=== PATIENT | female | born 1955 | race Caucasian/White ===

== ENCOUNTER 2023-03-02 04:21 | Inpatient (IN) | payer BC, OTHER ==
[2023-02-26 12:15] VITALS: BMI 24.1
[2023-03-02] MEDS ORDERED: ERTAPENEM SODIUM 1 GM in SODIUM CHLORIDE 50 ML IVPB ONE ×2 (07:00→11:30)
[2023-03-02] MEDS ORDERED: ERTAPENEM SODIUM 1 GM VIAL ONE (09:32)
[2023-03-02] MEDS ORDERED: cefOXitin SODIUM 2 GM VIAL (RESTRICTED TO ID) IVPB ONE (12:50)
[2023-03-02] MEDS ORDERED: HEPARIN NA (PORCINE) 5,000 UNITS/ML 1ML VIAL ONE (12:50)
[2023-03-02] MEDS ORDERED: BUPIVACAINE HCL/PF 0.25% (2.5MG/ML) 10 ML VIAL ONE (12:50)
[2023-03-02] MEDS ORDERED: CEFOXITIN SODIUM 2 GM IVPB ONE (12:51)
[2023-03-02] MEDS ORDERED: HEPARIN NA (PORCINE) 5,000 UNITS/ML 1ML VIAL SQ ONE ×2 (12:54→13:48)
[2023-03-02] MEDS ORDERED: BUPIVACAINE HCL/PF 0.25% (2.5MG/ML) 10 ML VIAL IJ ONE ×2 (12:54→14:06)
[2023-03-02] MEDS ORDERED: LIDOCAINE HCL/PF 2% SDV 5ML VIAL ONE (13:20)
[2023-03-02] MEDS ORDERED: MIDAZOLAM HCL 2 MG/2 ML SINGLE DOSE VIAL ONE (13:20)
[2023-03-02] MEDS ORDERED: FENTANYL CITRATE/PF 50 MCG/ML VIAL ONE ×4 (13:20→16:58)
[2023-03-02] MEDS ORDERED: DEXAMETHASONE SOD PHOSPHATE 4 MG/1 ML VIAL ONE (13:20)
[2023-03-02] MEDS ORDERED: ROCURONIUM BROMIDE 50 MG/5 ML SYRINGE ONE (13:20)
[2023-03-02] MEDS ORDERED: ONDANSETRON 4 MG/2 ML VIAL ONE (13:20)
[2023-03-02] MEDS ORDERED: MEROPENEM 1 GM VIAL (RESTRICTED TO ID) IVPB ONE (13:48)
[2023-03-02] MEDS ORDERED: INDOCYANINE GREEN 25 MG/10 ML VIAL IVPUSH ONE (14:59)
[2023-03-02] MEDS ORDERED: oxyCODONE HCL 5 MG TABLET PO PRN ×2 (15:27)
[2023-03-02] MEDS ORDERED: PROMETHAZINE HCL 25 MG/1 ML VIAL IVPB PRN (15:27)
[2023-03-02] MEDS ORDERED: ONDANSETRON 4 MG/2 ML VIAL IVPUSH PRN (15:27)
[2023-03-02] MEDS ORDERED: ACETAMINOPHEN 1000 MG/100 ML BAG IVPB PRN (15:28)
[2023-03-02] MEDS ORDERED: LACTATED RINGERS SOLUTION 1,000 ML IV SCH (15:30)
[2023-03-02] MEDS ORDERED: NEOSTIGMINE METHYLSULFATE 0.5 MG/1 ML - 10 ML MDV ONE (15:41)
[2023-03-02] MEDS ORDERED: SEVOFLURANE 250 ML BTL ONE (15:42)
[2023-03-02] MEDS ORDERED: ATROPINE SO4 0.4 MG/1 ML VIAL ONE (16:29)
[2023-03-02] MEDS: ACETAMINOPHEN 1000 MG/100 ML BAG IVPB SCH (22:29)
[2023-03-03] MEDS: ACETAMINOPHEN 1000 MG/100 ML BAG IVPB SCH ×3 (06:11→16:41)
[2023-03-03 09:23] LABS: BASO % 0.1 % (0-2.0); HEMATOCRIT 35.5 % (32.4-45.2); HEMOGLOBIN 12.4 GM/dL (10.7-15.3); LYMPH % 13.2 % (8-40); MCH 31.9 pg (25.7-33.7); MEAN CELL VOLUME 91.1 fl (80-96); MEAN PLT VOLUME 6.9 fl (7.5-11.1); MONO % 6.1 % (3.8-10.2); NEUT % 80.6 % (42.8-82.8); PLATELET COUNT 264 10^3/uL (134-434); RBC 3.89 M/mm3 (3.60-5.2); RDW 12.9 % (11.6-15.6); WHITE BLOOD COUNT 10.2 K/mm3 (4.0-10.0)
[2023-03-03 09:43] LABS: POTASSIUM 3.9 mmol/L (3.5-5.1)
[2023-03-03 09:54] LABS: CALCIUM 8.3 mg/dL (8.5-10.1)
[2023-03-03 09:56] LABS: BLOOD UREA NITROGEN 6.4 mg/dL (7-18)
[2023-03-03 09:58] LABS: CREATININE 0.6 mg/dL (0.55-1.3)
[2023-03-03] MEDS: amLODIPine BESYLATE 2.5 MG TABLET (FP) PO SCH (10:51)
[2023-03-03] MEDS: HEPARIN NA (PORCINE) 5,000 UNITS/ML 1ML VIAL SQ SCH (15:56)
[2023-03-04] MEDS: HEPARIN NA (PORCINE) 5,000 UNITS/ML 1ML VIAL SQ SCH ×2 (01:54→14:55)
[2023-03-04] MEDS ORDERED: ACETAMINOPHEN 500 MG TABLET (FP) PO PRN (02:00)
[2023-03-04] MEDS: amLODIPine BESYLATE 2.5 MG TABLET (FP) PO SCH (09:37)
[2023-03-04 09:39] LABS: HEMOGLOBIN 12.5 GM/dL (10.7-15.3); MCH 29.9 pg (25.7-33.7); MCHC 32.1 g/dl (32.0-36.0); MEAN CELL VOLUME 93.2 fl (80-96); MEAN PLT VOLUME 6.8 fl (7.5-11.1); PLATELET COUNT 307 10^3/uL (134-434); RBC 4.19 M/mm3 (3.60-5.2); RDW 12.8 % (11.6-15.6); WHITE BLOOD COUNT 8.5 K/mm3 (4.0-10.0)
[2023-03-04 10:30] LABS: CALCIUM 9.1 mg/dL (8.5-10.1)
[2023-03-04 10:31] LABS: BLOOD UREA NITROGEN 6.5 mg/dL (7-18)
[2023-03-04 10:34] LABS: CREATININE 0.7 mg/dL (0.55-1.3)
[2023-03-05 08:25] LABS: BASO % 0.1 % (0-2.0); EOS % 0.7 % (0-4.5); HEMATOCRIT 41.3 % (32.4-45.2); HEMOGLOBIN 13.5 GM/dL (10.7-15.3); LYMPH % 14.7 % (8-40); MCH 30.4 pg (25.7-33.7); MCHC 32.7 g/dl (32.0-36.0); MEAN CELL VOLUME 93.2 fl (80-96); MEAN PLT VOLUME 6.9 fl (7.5-11.1); MONO % 6.5 % (3.8-10.2); PLATELET COUNT 302 10^3/uL (134-434); RBC 4.43 M/mm3 (3.60-5.2); RDW 12.8 % (11.6-15.6); WHITE BLOOD COUNT 9.1 K/mm3 (4.0-10.0)
[2023-03-05 09:15] LABS: POTASSIUM 4.3 mmol/L (3.5-5.1)
[2023-03-05] MEDS: ENOXAPARIN NA (PORCINE) 30 MG/0.3 ML DISP.SYRIN SQ SCH (09:21)
[2023-03-05] MEDS: amLODIPine BESYLATE 2.5 MG TABLET (FP) PO SCH (09:21)
[2023-03-05 09:32] LABS: CALCIUM 9.3 mg/dL (8.5-10.1)
[2023-03-05 09:35] LABS: CREATININE 0.6 mg/dL (0.55-1.3)
[2023-03-05] MEDS ORDERED: POLYETHYLENE GLYCOL (HEALTHYLAX) 3350 17 GM PACKET PO SCH (10:00)
[2023-03-05] MEDS ORDERED: ONDANSETRON 4 MG/2 ML VIAL IVPUSH PRN (10:29)
[2023-03-05] MEDS ORDERED: amLODIPine BESYLATE 2.5 MG TABLET (FP) PO SCH (12:58)
[2023-03-05 18:59] VITALS: RESP 20
[2023-03-06] MEDS: ENOXAPARIN NA (PORCINE) 30 MG/0.3 ML DISP.SYRIN SQ SCH (09:05)
[2023-03-06 09:15] LABS: BASO % 0.2 % (0-2.0); EOS % 1.3 % (0-4.5); HEMATOCRIT 39.6 % (32.4-45.2); HEMOGLOBIN 12.9 GM/dL (10.7-15.3); LYMPH % 20.6 % (8-40); MCH 30.2 pg (25.7-33.7); MCHC 32.5 g/dl (32.0-36.0); MEAN PLT VOLUME 6.9 fl (7.5-11.1); MONO % 9.2 % (3.8-10.2); NEUT % 68.7 % (42.8-82.8); PLATELET COUNT 340 10^3/uL (134-434); RBC 4.27 M/mm3 (3.60-5.2); RDW 12.7 % (11.6-15.6); WHITE BLOOD COUNT 7.6 K/mm3 (4.0-10.0)
[2023-03-06 09:46] LABS: POTASSIUM 4.5 mmol/L (3.5-5.1)
[2023-03-06 10:00] LABS: BLOOD UREA NITROGEN 13.6 mg/dL (7-18); MAGNESIUM 2.2 mg/dL (1.8-2.4)
[2023-03-06 10:01] LABS: ALBUMIN 3.3 g/dl (3.4-5.0); CREATININE 0.6 mg/dL (0.55-1.3)
[2023-03-06 10:03] LABS: TOT PROT 6.7 g/dl (6.4-8.2)
[2023-03-06 10:05] LABS: BILIRUBIN,TOTAL 0.9 mg/dL (0.2-1)
[2023-03-06 14:48] VITALS: BP 115/71; PULSE 81; TEMP 98.6
== END 2023-03-06 15:26 | disposition home or self-care (01) | DRG 331 ==
LOC: J2C 04:21 → J8W 18:44
PROVIDERS: ADMIT Internal Medicine; ATTEND Nurse Practitioner Family
PROC: 0DTF4ZZ Resection of Right Large Intestine, Percutaneous Endoscopic Approach (ICD-10-PCS; principal; 2023-03-02 12:30)
DX: C18.0 Malignant neoplasm of cecum (principal); I10 Essential (primary) hypertension
CPT/HCPCS: 36415; 80048; 80053; 83735; 85025; 85027; 86140; 86850; 86900; 86901; 88309-TC; 94010; 94760; 97116-GP; 97161-GP; J1644